=== PATIENT | female | born 1985 | race Hispanic/Latino ===

== ENCOUNTER 2019-03-21 22:37 | Emergency (ER) | payer OTHER, SELFPAY ==
[2019-03-21 23:17] LABS: BASOPHILS % (AUTO) 1.5 % (0.0-5.0); EOSINOPHILS % (AUTO) 0.8 % (0.0-8.0); HEMATOCRIT 38.7 % (36-48); LYMPHOCYTES % (AUTO) 28.3 % (21.0-51.0); MEAN CORPUSCULAR HEMOGLOBIN 29.1 pg (27.0-33.0); MEAN CORPUSCULAR HGB CONC 33.8 g/dL (32.0-36.0); MEAN CORPUSCULAR VOLUME 86.2 fL (79-99); NEUTROPHILS % (AUTO) 60.4 % (40.0-77.0); PLATELET COUNT (AUTO) 321 K/uL (130-400); RED BLOOD CELL COUNT(AUTO) 4.48 MIL/uL (4.00-5.50); RED CELL DISTRIBUTION WIDTH 14.5 % (11.0-15.5); WHITE BLOOD COUNT (AUTO) 9.3 K/uL (4.8-10.8)
[2019-03-21 23:26] LABS: CREATININE 0.6 mg/dL (0.5-1.5); POTASSIUM 3.5 mmol/L (3.5-5.1)
[2019-03-21 23:30] LABS: BILIRUBIN,TOTAL 0.3 mg/dL (0.2-1.0); TOTAL PROTEIN, SERUM 7.4 g/dL (6.0-8.3)
[2019-03-21 23:32] LABS: INR 0.93 (0.85-1.15); PARTIAL THROMBOPLASTIN TIME 27.6 SEC (26.3-35.5); PROTHROMBIN TIME 9.8 SEC (9.6-11.6)
[2019-03-21 23:39] LABS: APPEARANCE,URINE Clear (CLEAR); BILIRUBIN,URINE Negative (NEGATIVE); COLOR,URINE Yellow (YELLOW); GLUCOSE, URINE (UA) Negative (NEGATIVE); KETONES,URINE Negative (NEGATIVE); LEUKOCYTE ESTERASE ,URINE Negative (NEGATIVE); NITRATE,URINE Negative (NEGATIVE); OCCULT BLOOD,URINE Negative (NEGATIVE); PH,URINE 6.5 (5.0-8.0); PROTEIN,URINE Negative (NEGATIVE); UROBILINOGEN,URINE 0.2 mg/dL (0.2-1.0)
[2019-03-21 23:42] LABS: HCG,QUAL RESULT NEGATIVE (NEGATIVE)
[2019-03-21] MEDS ORDERED: CEFTRIAXONE SODIUM 500 MG VIAL ONE (23:48)
[2019-03-21] MEDS ORDERED: AZITHROMYCIN 250 MG TABLET PO ONE (23:49)
[2019-03-22] MEDS ORDERED: DOXYCYCLINE HYCLATE 100 MG TABLET PO ONE (00:54)
[2019-03-22] MEDS ORDERED: HYOSCYAMINE SULFATE 0.125 MG TAB.SUBL SL ONE (00:54)
== END 2019-03-22 01:24 | disposition home or self-care (01) ==
LOC: EDH 22:37
DX: N73.9 Female pelvic inflammatory disease, unspecified (principal); R10.2 Pelvic and perineal pain
CPT/HCPCS: 36415; 76856; 80053; 81003; 81025; 82150; 83690; 85025; 85610; 85730; 87210; 87486; 87797; 96372; 99285; J0696

== ENCOUNTER 2019-12-16 | Emergency (ER) | payer OTHER, SELFPAY ==
[2019-12-16 00:49] LABS: BASOPHILS % (AUTO) 0.4 % (0.0-5.0); EOSINOPHILS % (AUTO) 2.4 % (0.0-8.0); HEMATOCRIT 38.8 % (36-48); LYMPHOCYTES % (AUTO) 31.1 % (21.0-51.0); MEAN CORPUSCULAR HEMOGLOBIN 26.2 pg (27.0-33.0); MEAN CORPUSCULAR VOLUME 81.9 fL (79-99); MONOCYTES % (AUTO) 8.5 % (3.0-13.0); NEUTROPHILS % (AUTO) 57.3 % (40.0-77.0); PLATELET COUNT (AUTO) 333 K/uL (130-400); RED BLOOD CELL COUNT(AUTO) 4.74 MIL/uL (4.00-5.50); RED CELL DISTRIBUTION WIDTH 17.5 % (11.0-15.5); WHITE BLOOD COUNT (AUTO) 10.5 K/uL (4.8-10.8)
[2019-12-16 00:54] LABS: APPEARANCE,URINE Clear (CLEAR); BILIRUBIN,URINE Negative (NEGATIVE); COLOR,URINE Yellow (YELLOW); GLUCOSE, URINE (UA) Negative (NEGATIVE); KETONES,URINE Negative (NEGATIVE); LEUKOCYTE ESTERASE ,URINE Negative (NEGATIVE); NITRATE,URINE Negative (NEGATIVE); OCCULT BLOOD,URINE Negative (NEGATIVE); PH,URINE 6.5 (5.0-8.0); PROTEIN,URINE Negative (NEGATIVE); UROBILINOGEN,URINE 0.2 mg/dL (0.2-1.0)
[2019-12-16 00:54] LABS: POTASSIUM 3.4 mmol/L (3.5-5.1)
[2019-12-16 01:00] LABS: ALBUMIN 3.8 g/dL (3.5-5.0); BILIRUBIN,TOTAL 0.2 mg/dL (0.2-1.0); TOTAL PROTEIN, SERUM 7.3 g/dL (6.0-8.3)
[2019-12-16] MEDS ORDERED: MORPHINE SULFATE 4 MG/1ML SYG ONE (01:23)
[2019-12-16] MEDS ORDERED: ONDANSETRON HCL 4 MG/2 ML VIAL ONE (01:23)
[2019-12-16] MEDS ORDERED: SODIUM CHLORIDE 0.9% 1000ML 1,000 ML IV ONE (01:24)
[2019-12-16] MEDS ORDERED: IOHEXOL-350 75 ML VIAL IV ONE (01:28)
[2019-12-16] MEDS ORDERED: KETOROLAC TROMETHAMINE 15MG/ML ONE (02:27)
== END 2019-12-16 02:44 | disposition home or self-care (01) ==
LOC: EDH
DX: N83.201 Unspecified ovarian cyst, right side (principal); Z90.49 Acquired absence of other specified parts of digestive tract; Z90.710 Acquired absence of both cervix and uterus
CPT/HCPCS: 36415; 74177; 80053; 81003; 83690; 85025; 96374; 96375; 99285; J1885; J2270; J2405; J7030; Q9967

== ENCOUNTER 2022-03-24 23:15 | Emergency (ER) | payer OTHER ==
[~2022-03-24] VITALS: Ht 142.2 cm; Wt 52.2 kg
[2022-03-25 00:55] LABS: BASOPHILS % (AUTO) 0.2 % (0.0-5.0); EOSINOPHILS % (AUTO) 1.4 % (0.0-8.0); HEMATOCRIT 40.7 % (36-48); LYMPHOCYTES % (AUTO) 33.4 % (21.0-51.0); MEAN CORPUSCULAR HEMOGLOBIN 30.2 pg (27.0-33.0); MEAN CORPUSCULAR HGB CONC 33.4 g/dL (32.0-36.0); MEAN CORPUSCULAR VOLUME 90.4 fL (79-99); MONOCYTES % (AUTO) 8.4 % (3.0-13.0); NEUTROPHILS % (AUTO) 56.4 % (40.0-77.0); PLATELET COUNT (AUTO) 296 K/uL (130-400); RED CELL DISTRIBUTION WIDTH 13.1 % (11.0-15.5); WHITE BLOOD COUNT (AUTO) 9.5 K/uL (4.8-10.8)
[2022-03-25] MEDS ORDERED: KETOROLAC 30MG VIAL (30MG/ML) IVP ONE (01:00)
[2022-03-25] MEDS ORDERED: FAMOTIDINE 20MG VIAL IV ONE (01:00)
[2022-03-25 01:08] LABS: POTASSIUM 4.3 mmol/L (3.5-5.1)
[2022-03-25 01:15] LABS: ALBUMIN 3.8 g/dL (3.5-5.0); BILIRUBIN,TOTAL 0.3 mg/dL (0.2-1.0); CREATININE 0.3 mg/dL (0.5-1.5); TOTAL PROTEIN, SERUM 7.2 g/dL (6.0-8.3)
[2022-03-25 02:51] VITALS: BP 129/92
[2022-03-25] MEDS ORDERED: FAMO-136 PO (02:52)
[2022-03-25] MEDS ORDERED: NAPR-1180 PO (02:52)
== END 2022-03-25 03:00 | disposition home or self-care (01) ==
LOC: EDH 23:15
DX: R07.89 Other chest pain (principal); Z98.890 Other specified postprocedural states
CPT/HCPCS: 36415; 71046; 80053; 83690; 84484; 85025; 85378; 93005; 96374; 96375; 99285; J1885; J3490

== ENCOUNTER 2024-05-08 14:31 | Emergency (ER) | payer OTHER ==
[~2024-05-08] VITALS: Ht 142.2 cm; Wt 49.9 kg
[~2024-05-08 14:31] MED LIST: FAMO-136 PO; NAPR-1180 PO
[2024-05-08] MEDS: TRIAMCINOLONE ACETONIDE 40 MG/ML 1ML VIAL IM ONE (15:24)
[2024-05-08] MEDS: KETOROLAC 30MG VIAL (30MG/ML) IM ONE (15:25)
[2024-05-08] MEDS: ORPHENADRINE CITRATE 30 MG/ML ML IM ONE (15:25)
[2024-05-08] MEDS ORDERED: METH-662 PO (15:51)
[2024-05-08] MEDS ORDERED: KETO10TA2 PO (15:51)
[2024-05-08 15:58] VITALS: BP 126/85; PULSE 80; RESP 18; O2SAT 98
== END 2024-05-08 16:04 | disposition home or self-care (01) ==
LOC: EDH 14:31
DX: M54.12 Radiculopathy, cervical region (principal); Z90.710 Acquired absence of both cervix and uterus
CPT/HCPCS: 99285; 70450; 72125; 96372 ×2; J3301; J1885; J2360